=== PATIENT | female | born 1975 | race Caucasian/White ===

== ENCOUNTER 2025-04-21 16:26 | Emergency (ER) | payer BC, SELFPAY ==
[2025-04-21 16:33] VITALS: BP 127/84; PULSE 92; O2SAT 98
[2025-04-21 16:42] VITALS: TEMP 36.6
--- NOTE | 2025-04-21 16:43 | PC.NURSE ---
urgency, frequency and burning with urination
[2025-04-21 16:49] LABS: Glucose Urine UA NEGATIVE (NEGATIVE)
[2025-04-21 16:57] LABS: Cast Seen? NONE SEEN #/LPF (NONE SEEN); Crystals Seen? None Seen #/HPF (None Seen); Urine Culture Indicated YES-FRMC
--- NOTE | 2025-04-21 17:08 | ED_ITS ---
HPI - Female Genitourinary General Chief complaint: Urogenital-Female Stated complaint: POSS UTI Time Seen by Provider: 04/21/25 16:50 Source: patient Mode of arrival: walk-in History of Present Illness HPI Narrative: The patient is coming to the ER with frequency of urination as well as burning with urination that started this morning, she started drinking some cranberry juice and it did not help her symptoms the patient had a history of urine infection more than a year ago The patient does not have frequent UTIs and usually they respond to treatment No fever no chills no back pain or abdominal pain Related Data Previous Rx's ?Medication ?Instructions ?Recorded phenazopyridine 200 mg tablet 200 mg PO Q8H PRN dysuri a 6 doses 04/21/25 (Pyridium) #6 tabs sulfamethoxazole 800 1 tab PO BID 5 days #10 tabs 04/21/25 mg-trimethoprim 160 mg tablet (Bactrim DS) Allergies Allergy/AdvReac Type Severity Reaction Status Date / Time No Known Drug Allergies Allergy Verified 04/21/25 16:38 Review of Systems ROS Status of ROS 10 or more systems reviewed and unremark able except as noted in history and below Exam Narrative Exam Narrative: Nurses notes and vital signs reviewed and patient is not hypoxic. General: Well-appearing and in no apparent distress. Skin: Warm, dry, no pallor noted. No rash. Head: Normocephalic, atraumatic. Neck: Supple, non-tender. Cardiovascular: Regular Rate and Rhythm without murmur, gallop or rub. Respiratory: No accessory muscle use or respiratory distress. Lungs are clear to auscultation, no wheezing, rales or rhonchi GI: Abdomen is soft, non-distended. Normal bowel sounds. No masses appreciated. No tenderness to palpation. No rebound, guarding, or rigidity noted. Neurological: A&O x4. No cranial nerve dysfunction observed. Constitutional Vital Signs, click to edit/add: Last Vital Signs Temp 97.9 F 04/21/25 16:42 Pulse 92 H 04/21/25 16:33 Resp 16 04/21/25 16:33 BP 127/84 04/21/25 16:33 Pulse Ox 98 04/21/25 16:33 O2 Del Method Room Air 04/21/25 16:33 Course Vital Signs Vital signs: Vital Signs Pulse Rate 92 H 04/21/25 16:33 Respiratory Rate 16 04/21/25 16:33 Blood Pressure 127/84 04/21/25 16:33 Pulse Oximetry 98 04/21/25 16:33 Oxygen Delivery Method Room Air 04/21/25 16:33 Temperature 97.9 F 04/21/25 16:42 Pulse Rate 92 H 04/21/25 16:33 Respiratory Rate 16 04/21/25 16:33 Blood Pressure 127/84 04/21/25 16:33 Pulse Oximetry 98 04/21/25 16:33 Oxygen Delivery Method Room Air 04/21/25 16:33 MDM - Female Genitourinary MDM Narrative Medical decision making narrative: The patient urinalysis positive for UTI She was started on Bactrim for the next 5 days and she is to Pyridium Patient instructed on hydration and monitoring symptoms in case of any fever or increasing symptoms she is to come back to the ER The patient is to follow up with primary care physician in next 2-3 days or to return to the emergency department should any of the signs or symptoms worsen or new symptoms develop. The patient agrees with the following Diagnosis and Treatment plan and the patient will be discharged home. Lab Data Labs: Lab Results 04/21/25 Range/Units 16:36 Urine Color Magnet A (YELLOW) Urine Clarity Clear (CLEAR) Urine pH 6.0 (5.0-9.0) Ur Specific [place] <=1.005 A (1.005-1.025) Urine Protein Negative (NEG/TRACE) mg/dL Urine Glucose (UA) Negative (NEGATIVE) mg/dL Urine Ketones Negative (NEGATIVE) mg/dL Urine Occult Blood Small A (NEGATIVE) Urine Nitrite Positive A (NEGATIVE) Urine Bilirubin Negative (NEGATIVE) Urine Urobilinogen 1.0 (0.2-1.0) EU/dL Ur Leukocyte Esterase Moderate A (NEGATIVE) Urine RBC 2-5 A (0-2) #/HPF Urine WBC 20-50 A (NONE SEEN) #/HPF Ur Squamous Epith Cells Rare (NONE/RARE) #/LPF Urine Crystals None seen (None Seen) #/HPF Urine Bacteria Trace A (NONE SEEN) #/HPF Urine Casts None seen (NONE SEEN) #/LPF Urine Mucus None seen (NONE SEEN) Ur Culture Indicated? Yes-[facility] – [place] Discharge Plan Discharge Chief Complaint: Urogenital-Female Clinical Impression: Urinary tract infection Patient Disposition: Home, Self-Care Time of Disposition Decision: 17:07 Condition: Good Prescriptions / Home Meds: New sulfamethoxazole-trimethoprim [Bactrim DS] 800-160 mg tablet 1 tab PO BID 5 Days Qty: 10 0RF phenazopyridine [Pyridium] 200 mg tablet 200 mg PO Q8H PRN (Reason: dysuria) Qty: 6 0RF Print Language: Greek Instructions: Urinary Tract Infection in Women (DC) Referrals: Physician,Non-Staff, MD [Primary Care Provider] - 1 week
[2025-04-21] MEDS: SULFAMETHOXAZOLE/TRIMETHOPRIM 800-160 MG TABLET 1 TAB PO (17:21)
== END 2025-04-21 17:24 | disposition home or self-care (01) ==
PROVIDERS: Emergency Provider Emergency Medicine
DX: N39.0 Urinary tract infection, site not specified (principal); Z87.440 Personal history of urinary (tract) infections
CPT/HCPCS: 81001; 87086; 87088; 87186; 99284